=== PATIENT | female | born 1980 | race Caucasian/White ===

== ENCOUNTER 2022-01-06 23:15 | Emergency (ER) | payer MEDICAID ==
[~2022-01-06] VITALS: Ht 157.5 cm; Wt 102.1 kg
[2022-01-06 23:30] VITALS: BP 144/72
--- NOTE | 2022-01-07 01:29 | NUR ---
pt ambulated to bed #11
[2022-01-07] MEDS ORDERED: NACL 0.9% 1,000 ML IV ONE (02:00)
[2022-01-07] MEDS ORDERED: ONDANSETRON 4 MG/2 ML VIAL IVP ONE (02:05)
[2022-01-07] MEDS ORDERED: MORPHINE SULFATE 4 MG/ML SYR IVP ONE (02:05)
--- NOTE | 2022-01-07 02:07 | NUR ---
20G IV LINE ESTABLISJED TO LT A/C. BLOOD COLLECTED VIA IV START
[2022-01-07 02:13] LABS: BASOPHILS # (AUTO) 0.1 K/uL (0.00-0.22); BASOPHILS % (AUTO) 0.8 % (0.0-2.0); EOSINOPHILS # (AUTO) 0.3 K/uL (0-0.4); EOSINOPHILS % (AUTO) 2.3 % (0.0-4.0); HEMATOCRIT 40.2 % (36-48); HEMOGLOBIN 13.3 g/dL (12.0-16.0); LYMPHOCYTES # (AUTO) 3.1 K/uL (2.5-16.5); MEAN CORPUSCULAR HEMOGLOBIN 28 pg (27-31); MEAN CORPUSCULAR HGB CONC 33 g/dL (33-37); MEAN CORPUSCULAR VOLUME 84.2 fL (80-94); MONOCYTES # (AUTO) 0.8 K/uL (0.8-1.0); MONOCYTES % (AUTO) 7.1 % (1.7-9.3); NEUTROPHILS # (AUTO) 7.1 K/uL (1.8-7.7); NEUTROPHILS % (AUTO) 62.8 % (42.2-75.2); PLATELET COUNT (AUTO) 273 K/uL (140-450); RED BLOOD CELL COUNT(AUTO) 4.77 MIL/uL (4.20-5.40); RED CELL DISTRIBUTION WIDTH 13.7 % (11.6-13.7); WHITE BLOOD COUNT (AUTO) 11.3 K/uL (4.8-10.8)
[2022-01-07 02:28] LABS: ALBUMIN 3.4 g/dL (3.4-5.0); ANION GAP 10.6 (8-16); CARBON DIOXIDE 27.9 mmol/L (21-32); CREATININE 0.8 mg/dL (0.6-1.3); POTASSIUM 4.5 mmol/L (3.5-5.1); TOTAL BILIRUBIN 0.4 mg/dL (0.0-1.0)
--- NOTE | 2022-01-07 02:35 | NUR ---
41 YO F BIB SELF WITH C/C OF 710 ABD PAIN THAT RAD TO BACK XYESTERDAY. DENIES N/V/D. DENIES TAKING MEDICATION FOR PAIN. DENIESHX, RX AND ALLERGIES
--- NOTE | 2022-01-07 02:41 | NUR ---
BP OF 106/70 HR76 HANNAH CONTE STATED ITS OK TO GIVE MORPHINE 4MG IVP
--- NOTE | 2022-01-07 04:18 | NUR ---
Dr. Mcgrath examining patient.
[2022-01-07 04:36] VITALS: BP 106/70
--- NOTE | 2022-01-07 04:36 | NUR ---
Patient discharged with v/s stable. Written and verbal after care instructions given and explained. Patient verbalized understanding. Ambulatory with steady gait. All questions addressed prior to discharge. Advised to follow up with PMD.
== END 2022-01-07 04:36 | disposition home or self-care (01) ==
LOC: MED 23:15
DX: K82.4 Cholesterolosis of gallbladder (principal); R10.11 Right upper quadrant pain; R10.13 Epigastric pain; Z72.89 Other problems related to lifestyle
CPT/HCPCS: 36415; 76705; 80053; 81002; 81025; 82150; 83690; 85025; 96361; 96374; 96375; 99284; J2270; J2405; Q0092

== ENCOUNTER 2022-08-26 19:23 | Emergency (ER) | payer MEDICAID ==
[~2022-08-26] VITALS: Ht 160 cm; Wt 104.3 kg
[2022-08-26 19:45] VITALS: BP 124/76
--- NOTE | 2022-08-26 19:48 | NUR ---
TO LOBBY A/W BED AMBULATORY
[2022-08-26] MEDS ORDERED: DICYCLOMINE HCL LIQUID 20 MG, ALUMINUM HYD/MAG/SIMETHICONE 30 ML, LIDOCAINE VISCOUS 2% ... PO ONE ×3 (23:10)
[2022-08-26] MEDS ORDERED: ONDANSETRON 4 MG ODT PO ONE (23:10)
[2022-08-26] MEDS ORDERED: ALUMINUM HYD/MAG/SIMETHICONE 30 ML UDC ONE (23:20)
[2022-08-26] MEDS ORDERED: DICYCLOMINE HCL LIQUID 10 MG/5 ML UDC ONE (23:20)
[2022-08-26 23:41] LABS: BASOPHILS % (AUTO) 0.3 % (0.0-2.0); EOSINOPHILS # (AUTO) 0.2 K/uL (0-0.4); EOSINOPHILS % (AUTO) 2.1 % (0.0-4.0); HEMATOCRIT 41.2 % (36-48); HEMOGLOBIN 13.8 g/dL (12.0-16.0); LYMPHOCYTES # (AUTO) 1.5 K/uL (2.5-16.5); LYMPHOCYTES % (AUTO) 17.8 % (20.5-51.1); MEAN CORPUSCULAR HEMOGLOBIN 28 pg (27-31); MEAN CORPUSCULAR HGB CONC 33 g/dL (33-37); MEAN CORPUSCULAR VOLUME 83.3 fL (80-94); MONOCYTES # (AUTO) 0.3 K/uL (0.8-1.0); MONOCYTES % (AUTO) 3.1 % (1.7-9.3); NEUTROPHILS # (AUTO) 6.3 K/uL (1.8-7.7); NEUTROPHILS % (AUTO) 76.7 % (42.2-75.2); PLATELET COUNT (AUTO) 255 K/uL (140-450); RED BLOOD CELL COUNT(AUTO) 4.94 MIL/uL (4.20-5.40); RED CELL DISTRIBUTION WIDTH 14.1 % (11.6-13.7); WHITE BLOOD COUNT (AUTO) 8.2 K/uL (4.8-10.8)
[2022-08-26 23:47] LABS: APPEARANCE,URINE CLEAR (CLEAR); BILIRUBIN,URINE NEGATIVE (NEGATIVE); BLOOD, URINE NEGATIVE (NEGATIVE); COLOR,URINE YELLOW (YELLOW); LEUKOCYTE ESTERASE ,URINE NEGATIVE (NEGATIVE); NITRITE, URINE NEGATIVE (NEGATIVE); UGLUCOSE NEGATIVE (NEGATIVE)
[2022-08-26] MEDS ORDERED: TELM20TA6 PO (23:55)
[2022-08-26] MEDS ORDERED: CARB1TER9 PO (23:55)
[2022-08-26] MEDS ORDERED: PRAS1TAB3 PO (23:55)
[2022-08-26] MEDS ORDERED: CITA20TA15 PO (23:55)
[2022-08-26] MEDS ORDERED: PRAZ1CAP5 PO (23:55)
[2022-08-26] MEDS ORDERED: PROP20TA29 PO (23:55)
[2022-08-26] MEDS ORDERED: ROPI1TAB40 PO (23:55)
[2022-08-26] MEDS ORDERED: MELA1TAB32 PO (23:55)
[2022-08-26 23:58] LABS: ALBUMIN 3.6 g/dL (3.4-5.0); ANION GAP 14.8 (8-16); CARBON DIOXIDE 23.6 mmol/L (21-32); CREATININE 0.7 mg/dL (0.6-1.3); POTASSIUM 3.4 mmol/L (3.5-5.1); TOTAL BILIRUBIN 0.7 mg/dL (0.0-1.0)
[2022-08-27] MEDS ORDERED: ONDA-188 PO (00:28)
[2022-08-27] MEDS ORDERED: MAG355OR2 PO (00:28)
[2022-08-27] MEDS ORDERED: BISM262C53 PO (00:28)
--- NOTE | 2022-08-27 00:40 | NUR ---
Patient discharged with v/s stable. Written and verbal after care instructions given and explained. Patient alert, oriented and verbalized understanding of instructions. Ambulatory with steady gait. All questions addressed prior to discharge. ID band removed. Patient advised to follow up with PMD. Rx of ZOFRAN, MAG HYDROX AND PEPTO BISMOL given. Patient educated on indication of medication including possible reaction and side effects. Opportunity to ask questions provided and answered.
[2022-08-27 00:44] VITALS: BP 122/58
== END 2022-08-27 00:44 | disposition home or self-care (01) ==
LOC: MED 19:23
DX: R11.2 Nausea with vomiting, unspecified (principal); R10.13 Epigastric pain; R19.7 Diarrhea, unspecified; Z79.899 Other long term (current) drug therapy
CPT/HCPCS: 36415; 80053; 81003; 81025; 83690; 85025; 99283; Q0162